=== PATIENT | female | born 1955 | race Hispanic/Latino ===

== ENCOUNTER → 2018-05-29 | Outpatient (REF) | payer BC | END | disposition home or self-care (01) | DRG 951 | LOC: MAMMO 09:02 | PROVIDERS: ATTEND Internal Medicine | DX: Z12.31 Encounter for screening mammogram for malignant neoplasm of breast (principal); N95.1 Menopausal and female climacteric states ==

== ENCOUNTER → 2018-05-29 | Outpatient (REF) | END | disposition home or self-care (01) | DRG 379 | LOC: LAB 09:08 | PROVIDERS: ATTEND Internal Medicine | DX: K92.1 Melena (principal); M15.0 Primary generalized (osteo)arthritis; M25.50 Pain in unspecified joint; R42 Dizziness and giddiness; Z12.12 Encounter for screening for malignant neoplasm of rectum ==

== ENCOUNTER 2018-07-11 07:20 | Day surgery (SDC) | payer BC ==
[2018-07-11 09:12] VITALS: BP 104/60
== END 2018-07-11 09:45 | disposition home or self-care (01) | DRG 951 ==
LOC: ENDO 07:20
PROVIDERS: ATTEND Surgery
PROC: 0DJD8ZZ Inspection of Lower Intestinal Tract, Via Natural or Artificial Opening Endoscopic (ICD-10-PCS; principal; 2018-07-11)
DX: Z12.11 Encounter for screening for malignant neoplasm of colon (principal)